=== PATIENT | female | born 1965 | race African-American/Black ===

== ENCOUNTER 2016-08-16 17:20 | Emergency (ER) | payer OTHER ==
[2016-08-16 15:39] LABS: URINE SOURCE CLEAN CATCH
[2016-08-16 15:58] LABS: URINE APPEARANCE CLEAR; URINE BILIRUBIN NEG (NEG); URINE BLOOD NEG (NEG); URINE COLOR YELLOW; URINE GLUCOSE NEG (NEG); URINE KETONE NEG (NEG); URINE LEUKOCYTE ESTERASE NEG (NEG); URINE NITRATE NEG (NEG); URINE PROTEIN NEG (NEG); URINE SPECIFIC GRAVITY 1.018 (1.003-1.035)
[2016-08-16 16:45] LABS: CULTURE INDICATED? NO
[2016-08-21 16:20] LABS: CHLAMYDIA TRACH Not Detected (Not Detected); N GONOR Not Detected (Not Detected)
== END 2016-08-16 18:06 | disposition home or self-care (01) ==
LOC: CFTX 17:20
PROVIDERS: Nurse Practitioner; Student in an Organized Health Care Education/Training Program
DX: R35.0 Frequency of micturition (principal); J06.9 Acute upper respiratory infection, unspecified; Z88.0 Allergy status to penicillin
CPT/HCPCS: 81003; 82947; 87491; 87591; 87808; 87905; 99284